=== PATIENT | female | born 1990 | race Caucasian/White ===

== ENCOUNTER 2018-07-29 21:08 | Observation (INO) ==
[2018-07-29] MEDS ORDERED: SODIUM CHLORIDE 0.9% 500 ML IV STA (21:32)
[2018-07-29] MEDS ORDERED: ONDANSETRON 4 MG/2 ML VIAL IV PRN (23:12)
[2018-07-29] MEDS: SODIUM CHLORIDE 0.9% 1,000 ML IV SCH (23:30)
[2018-07-30 06:29] LABS: Basophils % 0.4 % (0.0-0.8); Eosinophils % 0.2 % (0.00-10.9); Immature Granulocytes % 0.4 %; Immature Granulocytes Absolute 0.04 #; Lymphocytes # 1.2 10*3/uL (1.4-4.0); Lymphocytes % 12.1 % (21.3-54.2); Mean Corpuscular HGB Conc 33.3 GM/DL (32-36); Mean Corpuscular Hemoglobin 31 PG (27-34); Mean Corpuscular Volume 93.3 FL (87-102); Mean Platelet Volume 9.8 FL (9.6-12.0); Monocytes # 0.3 10*3/uL (0.11-0.8); Monocytes % 3.4 % (1.7-12.7); Neutrophils # 8.3 10*3/uL (1.4-7.4); Neutrophils % 83.5 % (38.7-73.9); Platelet Count 338 T/CUMM (130-400); Red Blood Count 3.86 MC/CUMM (3.8-5.5); Red Cell Distribution Width 12.5 % (9.3-17.3); White Blood Count 9.9 T/CUMM (4-12)
[2018-07-30 06:32] LABS: INR 0.9; PT Patient Result 9.8 SECS
[2018-07-30] MEDS ORDERED: OXYMETAZOLINE 0.05% NASAL SPRAY 15 ML BOTTLE BOTH NARES PRN (08:52)
[2018-07-30] MEDS ORDERED: HYDROmorphone 2 MG/1 ML VIAL IV ONE (08:52)
[2018-07-30] MEDS ORDERED: INFLUENZA VIRUS VACCINE 0.5 ML SYRINGE IM ONE (09:00)
[2018-07-30 11:52] VITALS: BP 118/69
[2018-07-30] MEDS: SODIUM CHLORIDE 0.9% 1,000 ML IV SCH (13:36)
[2018-07-30] MEDS ORDERED: NORGESTIMATE ETHINYL ESTRADIOL PO SCH (19:00)
== END 2018-07-30 13:50 | disposition home or self-care (01) ==
LOC: N.ED 21:08 → N.EDINP 21:08 → N.3E 22:12
PROVIDERS: ADMIT Otolaryngology; ATTEND Otolaryngology